=== PATIENT | male | born 1985 | race Caucasian/White ===

== ENCOUNTER 2017-07-04 18:26 | Emergency (ER) | payer BC ==
[2017-07-04 19:04] VITALS: BP 134/84
[2017-07-04] MEDS ORDERED: Fluorescein Sodium TOPICAL* 1 MG TEST OPHTHALMIC ONE (19:04)
[2017-07-04] MEDS ORDERED: Tetracaine 0.5% OPTH.SOL 4 ML* 1 DROP BTL LEFT EYE ONE (19:07)
[2017-07-04] MEDS ORDERED: Ciprofloxacin 0.3% OPTH.SOL* 2.5 ML BTL LEFT EYE ONE (19:16)
--- NOTE | 2017-07-04 19:16 | ED ---
Throat Pain/Nasal Congestion - HPI Summary HPI Summary: 32M presents with left eye injury. He was wearing a contact and a folder hit him in the corner of his left eye. He denies any pain or change in vision. He denies any blurry vision. He denies any foreign body still in his eye. He denies any discharge from his eye. He has injected conjunctiva on lateral aspect of left eye. - History of Current Complaint Chief Complaint: EDEyeProblem Time Seen by Provider: 07/04/17 18:44 - Allergies/Home Medications Allergies/Adverse Reactions: Allergies Allergy/AdvReac Type Severity Reaction Status Date / Time No Known Allergies Allergy Verified 07/04/17 18:30 Home Medications: Home Medications NK [No Home Medications Reported] 07/04/17 [History Confirmed 07/04/17] PMH/Surg Hx/FS Hx/Imm Hx Endocrine/Hematology History: Denies: Hx Anticoagulant Therapy Cardiovascular History: Denies: Hx Myocardial Infarction - Surgical History Surgery Procedure, Year, and Place: TUBES KID IN EARS - Immunization History Immunizations Up to Date: Yes Infectious Disease History: No Infectious Disease History: Denies: Traveled Outside the [place] in Last 30 Days - Family History Known Family History: Positive: Hypertension - Social History Alcohol Use: Occasionally Substance Use Type: Reports: None Smoking Status (MU): Current Every Day Smoker Review of Systems Negative: Fever Positive: Erythema Negative: Chest Pain Negative: Shortness Of Breath All Other Systems Reviewed And Are Negative: Yes Physical Exam Triage Information Reviewed: Yes Vital Signs On Initial Exam: Initial Vitals Temp Pulse Resp BP Pulse Ox 98.1 F 80 16 128/89 96 07/04/17 18:28 07/04/17 18:28 07/04/17 18:28 07/04/17 18:28 07/04/17 18:28 Completion Of Physical Exam Limited Due To: Dementia Appearance: Positive: Well-Appearing Skin: Positive: Warm, Dry Head/Face: Positive: Normal Head/Face Inspection Eyes: Positive: Normal, EOMI, MARIANGEL, Other: - lateral aspect of left eye sclera injected with small abrasion seen, no uptake of cornea on fundoscopic exam ENT: Positive: Normal ENT inspection, Pharynx normal, TMs normal Respiratory/Lung Sounds: Positive: Clear to Auscultation, Breath Sounds Present Cardiovascular: Positive: Normal, RRR Musculoskeletal: Positive: Normal Neurological: Positive: Normal Psychiatric: Positive: Normal - Nena Coma Scale Coma Scale Total: 15 Procedures - Eye Procedure Alcaine Drops Administered: Yes - no uptake fluorscein exam Diagnostics - Vital Signs Vital Signs Temp Pulse Resp BP Pulse Ox 07/04/17 19:01 97.9 F 80 15 134/84 99 07/04/17 18:28 98.1 F 80 16 128/89 96 - Laboratory Lab Statement: Any lab studies that have been ordered have been reviewed, and results considered in the medical decision making process. EENT Course/Dx - Course Course Of Treatment: 32M presents with left eye injury. He was wearing a contact and a folder hit him in the corner of his left eye. He denies any pain or change in vision. He denies any blurry vision. He denies any foreign body still in his eye. He denies any discharge from his eye. He has injected conjunctiva on lateral aspect of left eye. on exam has abrasion on sclera. no uptake on fundoscopic exam. will treat with cipro due to contact use to prevent infection. told not to use contacts until stop antibiotic. patient understand and agrees with plan. - Differential Diagnoses Differential Diagnoses: Conjunctivitis, Corneal Abrasion, Foreign Body - Diagnoses Provider Diagnoses: Left eye injury Discharge - Discharge Plan Condition: Good Disposition: HOME Referrals: Shahid Bonilla MD [Primary Care Provider] - Additional Instructions: You have a scratch of your sclera Take cipro once drop four times a day for 3 days Avoid contacts until heals Follow up with optho if no improvement Return to ED if develop any new or worsening symptoms
== END 2017-07-04 19:29 | disposition home or self-care (01) ==
LOC: ED 18:26
DX: S05.92XA Unspecified injury of left eye and orbit, initial encounter (principal); F17.200 Nicotine dependence, unspecified, uncomplicated; W22.8XXA Striking against or struck by other objects, initial encounter; Y92.9 Unspecified place or not applicable
CPT/HCPCS: 99281; A9270-GY